=== PATIENT | female | born 1945 | race Hispanic/Latino ===

== ENCOUNTER 2018-08-20 23:00 | Emergency (ER) | payer MEDICARE ==
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
[2018-08-21 03:52] VITALS: BP 169/73
== END 2018-08-21 03:00 | disposition home or self-care (01) ==
LOC: ED 23:00
DX: S81.812A Laceration without foreign body, left lower leg, initial encounter (principal); I10 Essential (primary) hypertension; J45.909 Unspecified asthma, uncomplicated; I48.91 Unspecified atrial fibrillation; E07.9 Disorder of thyroid, unspecified; F17.200 Nicotine dependence, unspecified, uncomplicated; Z88.5 Allergy status to narcotic agent; Z88.2 Allergy status to sulfonamides; Z88.1 Allergy status to other antibiotic agents; Z91.041 Radiographic dye allergy status; Z91.011 Allergy to milk products; Z91.013 Allergy to seafood; Z90.89 Acquired absence of other organs; Z98.890 Other specified postprocedural states; Z90.710 Acquired absence of both cervix and uterus; V89.0XXA Person injured in unspecified motor-vehicle accident, nontraffic, initial encounter; Y93.89 Activity, other specified; Y92.488 Other paved roadways as the place of occurrence of the external cause; Y99.8 Other external cause status